=== PATIENT | male | born 1975 | race Caucasian/White ===

== ENCOUNTER → 2020-06-16 10:46 | Outpatient (BNVA) | payer OTHER, SELFPAY | PROVIDERS: Visit Provider Physician Assistant Medical | DX: S33.9XXA Sprain of unspecified parts of lumbar spine and pelvis, initial encounter (principal); X50.9XXA Other and unspecified overexertion or strenuous movements or postures, initial encounter | CPT/HCPCS: 99202 ==

== ENCOUNTER → 2020-06-24 11:23 | Outpatient (BNVA) | payer OTHER, SELFPAY | PROVIDERS: Visit Provider Physician Assistant Medical | DX: S33.9XXD Sprain of unspecified parts of lumbar spine and pelvis, subsequent encounter (principal); X58.XXXD Exposure to other specified factors, subsequent encounter | CPT/HCPCS: 99213 ==

== ENCOUNTER → 2020-06-28 13:14 | Outpatient (BNVA) | payer OTHER, SELFPAY | PROVIDERS: Visit Provider Physician Assistant Medical | DX: S33.9XXD Sprain of unspecified parts of lumbar spine and pelvis, subsequent encounter (principal); X58.XXXD Exposure to other specified factors, subsequent encounter | CPT/HCPCS: 99213 ==

== ENCOUNTER → 2020-07-05 14:10 | Outpatient (BNVA) | payer OTHER, SELFPAY | PROVIDERS: Visit Provider Physician Assistant Medical | DX: S33.9XXD Sprain of unspecified parts of lumbar spine and pelvis, subsequent encounter (principal); X58.XXXD Exposure to other specified factors, subsequent encounter | CPT/HCPCS: 99213 ==

== ENCOUNTER → 2020-07-12 12:57 | Outpatient (BNVA) | payer OTHER, SELFPAY | PROVIDERS: Visit Provider Physician Assistant Medical | DX: S33.9XXD Sprain of unspecified parts of lumbar spine and pelvis, subsequent encounter (principal); X58.XXXD Exposure to other specified factors, subsequent encounter | CPT/HCPCS: 72110; 72200; 99214 ==

== ENCOUNTER 2020-07-19 15:46 | Outpatient (REF) | payer OTHER, SELFPAY ==
--- NOTE | 2020-07-19 16:00 | MR_ITS ---
EXAMINATION: MR LUMBAR SPINE WITHOUT CONTRAST CLINICAL INFORMATION: Right lumbosacral strain. Persistent pain. COMPARISON: Plain films of the lumbosacral spine 07/12/2020. TECHNIQUE: MRI of the lumbar spine was obtained using routine sequences without contrast. FINDINGS: VERTEBRAL BODIES AND PARASPINAL STRUCTURES: There is anatomic alignment of the vertebral bodies. There is narrowing of intervertebral disc height at L5-S1. There our no fractures, and vertebral body heights are maintained. Slightly irregular endplate changes are seen anteriorly at L2-L3. Overall, marrow signal is homogenous. The visualized retroperitoneal and pelvic structures are unremarkable. CONUS MEDULLARIS AND CAUDA EQUINA: Normal, terminating at the level of L1. The lower thoracic spinal cord appears normal. The cauda equina nerve roots and filum terminale appear normal. SPINAL LEVELS: L1-L2: The facet joints appear normal bilaterally. Disc contour is normal. There is no central stenosis or foraminal narrowing. L2-L3: The facet joints appear normal. There is a mild diffuse disc bulge. There is no foraminal nerve root impingement, and there is no central stenosis. L3-L4: There is mild bilateral facet arthropathy. There is a right-sided disc protrusion extending far laterally with impingement on the extraforaminal right L3 nerve root. The left neural foramen is patent. There is mild flattening of the ventral thecal sac and narrowing of the right subarticular recess. There is no central stenosis. L4-L5: There is mild bilateral facet arthropathy. Disc contour is normal. There is no central stenosis or foraminal narrowing. L5-S1: There is mild bilateral facet arthropathy. There is a posterior disc protrusion with an annular fissure extending into the inferior neural foramina bilaterally. This is more prominent on the left, and there is impingement on the exiting L5 nerve roots inferiorly bilaterally. There is no central stenosis. MR/MR lumbar spine wo con IMPRESSION: 1. There is a right-sided disc protrusion extending far laterally at L3-L4 with impingement on the extra foraminal right L3 nerve root. There is mild narrowing of the right subarticular recess. 2. At L5-S1 there is facet arthropathy and there is a posterior disc protrusion with an annular fissure. There is impingement on the exiting L5 nerve roots inferiorly bilaterally.
== END 2020-07-19 15:47 | disposition home or self-care (01) ==
LOC: HO.MRI 15:46
PROVIDERS: Visit Provider Internal Medicine
DX: S39.012A Strain of muscle, fascia and tendon of lower back, initial encounter (principal)
CPT/HCPCS: 72148

== ENCOUNTER → 2020-07-26 12:04 | Outpatient (BNVA) | payer OTHER, SELFPAY | PROVIDERS: Visit Provider Physician Assistant Medical | DX: S33.9XXD Sprain of unspecified parts of lumbar spine and pelvis, subsequent encounter (principal); X58.XXXD Exposure to other specified factors, subsequent encounter; G55 Nerve root and plexus compressions in diseases classified elsewhere | CPT/HCPCS: 99213 ==